=== PATIENT | female | born 1940 | race Caucasian/White ===

== ENCOUNTER → 2016-10-07 | Outpatient (CLI) | payer MEDICARE ==
[~2016-10-07] MED LIST: ALPR0.5T3 PO; AMIT1TAB79 PO; AMIT25TA9 PO; ARTHTAB5 PO; ASCO100016 PO; B COTAB6 PO; CALC600T25 PO; CLAR10CA3 PO; ESTR.3 PO; ESTR0.62 VAGINAL; HYDR200T3 PO; LEVO100T5 PO; LEVO88TA2 PO; METH4TAB6 PO; MULTCAP PO; NIFE30TA61 PO; OCUVTAB PO; OMEG100010 PO; ONE-TAB14 PO; OXYC1CAP PO; OXYC1TAB63 PO; PLAQ200T PO; PROM12.55 PO; REST0.05 EACH EYE; SULF1TAB23 PO; SUPECAP2 PO; VITA10007 PO; VITA20003 PO
[2016-10-07 14:54] LABS: AUTOMATED NEUTROPHIL # 2.3 TH/MM3 (1.8-7.7); BASOPHIL % 0.9 % (0.0-2.0); EOSINOPHIL # 0.1 TH/MM3 (0-0.4); EOSINOPHIL % 2.2 % (0.0-4.0); HEMATOCRIT 37.4 % (35.0-46.0); HEMO FLAGS DIFF FINAL; LYMPH % 28.3 % (9.0-44.0); LYMPHOCYTE # 1.1 TH/MM3 (1.0-4.8); MEAN CORPUSCULAR HEMOGLOBIN 32.5 PG (27.0-34.0); MEAN CORPUSCULAR HGB CONC 34.9 % (32.0-36.0); MONO % 9.7 % (0.0-8.0); NEUT % 58.9 % (16.0-70.0); PLATELET COUNT 296 TH/MM3 (150-450); RED BLOOD COUNT 4.02 MIL/MM3 (4.00-5.30); RED CELL DISTRIBUTION WIDTH 13.3 % (11.6-17.2); WHITE BLOOD COUNT 3.9 TH/MM3 (4.0-11.0)
[2016-10-07 15:02] LABS: BACTERIA, URINE RARE /hpf; BLOOD, URINE NEG (NEG); COMMENT (UR) CULT NOT INDICATED; CULTURE IF INDICATED CULT NOT INDICATED; GLUCOSE,URINE NEG (NEG); KETONE, URINE NEG (NEG); NITRITE,URINE NEG (NEG); SQUAMOUS EPITHELIAL CELL URINE 1 /hpf (0-5); URINE COLOR YELLOW (YELLW/STRAW)
[2016-10-07 15:16] LABS: ALT (GPT) 22 U/L (10-53); ANION GAP 7 MEQ/L (5-15); AST (GOT) 20 U/L (15-37); BICARBONATE 31.1 MEQ/L (21.0-32.0); BLOOD UREA NITROGEN 18 MG/DL (7-18); CHLORIDE 102 MEQ/L (98-107); GLOMERULAR FILTRATION RATE 70 ML/MIN (>89); GLUCOSE,FASTING 68 MG/DL (74-99); POTASSIUM 3.7 MEQ/L (3.5-5.1); SODIUM (NA) 140 MEQ/L (136-145)
[2016-10-07 15:18] LABS: ALKALINE PHOSPHATASE 85 U/L (45-117); TOTAL BILIRUBIN ADULT 0.4 MG/DL (0.2-1.0)
--- NOTE | 2016-10-07 22:32 | EKG ---
Date Performed: 10/07/2016 Time Performed: 14:15:17 PTAGE: 76 years EKG: Sinus rhythm ANTEROSEPTAL Q WAVES ABNORMAL ECG Compared to prior tracing no significant change DOCTOR: Margie Babcock Interpretating Date/Time 10/07/2016 22:30:38
== END ==
LOC: CPRE 13:48
PROVIDERS: ATTEND Obstetrics & Gynecology Gynecology
DX: Z01.810 Encounter for preprocedural cardiovascular examination (principal); Z01.812 Encounter for preprocedural laboratory examination; N99.3 Prolapse of vaginal vault after hysterectomy
CPT/HCPCS: 36415; 80053; 81001; 85025; 93005

== ENCOUNTER → 2016-10-15 | Day surgery (SDC) | payer MEDICARE ==
--- NOTE | 2016-10-07 14:47 | MH ---
cc: ERICA JUNE MD DATE OF ADMISSION: 10/15/2016 DATE OF : 1940 REASON FOR ADMISSION Vaginal suspension, anterior and posterior repair. HISTORY OF PRESENT ILLNESS The patient is a 76-year-old white female, 1, para 1, status post prior hysterectomy, who has had issues with pelvic organ prolapse. This is manifested mainly by a sensation of pressure and bulging from the vagina. This is 6-7 on a scale of 10, worse with standing, better when she is off her feet. She has used vaginal estrogen with no significant result and she wants to proceed now with surgical correction. HISTORY OF PRESENT ILLNESS 1. Lupus. 2. Hypertension. 3. Macular degeneration. 4. Hypothyroidism. 5. Osteoarthritis. 6. Migraines. PAST SURGICAL HISTORY 1. Hysterectomy. 2. Carpal tunnel release. 3. Cholecystectomy. 4. Tonsillectomy. ALLERGIES CODEINE. MEDICATIONS 1. Oxycodone/acetaminophen q.4h. p.r.n. 2. Amitriptyline 25 mg q.h.s. 3. Premarin 0.3 mg q. day. 4. Alprazolam 0.5 mg q. day. 5. Nifedipine 30 mg q. day. 6. Hydroxychloroquine 200 mg q. day. 7. Synthroid 100 mcg q. day. FAMILY HISTORY Noncontributory. SOCIAL HISTORY Distant [id number] smoking history, has not smoked for 30 years. HISTORY with good social support. SPANISH LINGUIST HISTORY No STDs or abnormal Pap smears. Hysterectomy for a benign condition. Endometriosis. OB HISTORY One vaginal delivery, baby was 9 pounds. REVIEW OF SYSTEMS As above. No chest pain, orthopnea, PND. No nausea, vomiting or chills. No vaginal bleeding or discharge. The remainder of a 14-point review is negative. PHYSICAL EXAMINATION VITAL SIGNS: She is afebrile. Vital signs stable. Blood pressure 150/90. Height 5.6, weight 143, BMI 22.7. GENERAL: Patient is alert and oriented in no acute distress. No sign of cognitive dysfunction or depression. HEENT: Within normal limits. NECK: Supple. No JVD. CHEST: Clear. HEART: Regular rate and rhythm. ABDOMEN: Soft, nontender. No hepatosplenomegaly. No CVA tenderness. PELVIC: Exam in the office shows Aa is -1; Ap is -1; point C is -1; genital hiatus is 4; perineal body is 4; total vaginal length is 10. No significant postvoid residual. No significant hypermobility of urethra. Further exam under anesthesia. EXTREMITIES: Normal. SKIN: Without rashes. NEUROLOGIC: Nonfocal. No DVT signs. ASSESSMENT/PLAN Patient with stage II pelvic organ prolapse, anterior, posterior and apical components. The patient and I have discussed at length options for management and treatment. She is aware of the risks, benefits and alternative of planned procedure including damage to surrounding organs, bleeding, infection, failure rate of at least 15%, possibility of prolonged catheterization as well as new onset urinary incontinence. Issues regarding postoperative pain in terms of bladder, bowel and sexual function were discussed. The patient at this point has made an informed choice to proceed. She is going to use antibiotic prophylaxis with Ancef one gram, DVT prophylaxis with sequential compression device. Anticipate outpatient procedure. Erica June MD CS/BT /2:21 PM /2:30 PM
[~2016-10-15] VITALS: Ht 168.9 cm; Wt 68.5 kg
[~2016-10-15] MED LIST changes: +ACETAMINOPHEN 1000 MG/100 ML VIAL IV ONE; +CHLORHEXIDINE GLUCONATE 2 % 1 PACK (2 CLOTHS) TOPICAL PRN; -CLAR10CA3 PO; +DO NOT ADM ANY ANTICOAGULANT DRUGS PRN; -ESTR.3 PO; +ESTROGENS CONJUGATED VAG CREA 15 APPL/30 GM TUBE ONE; +FAMOTIDINE 20 MG/2 ML VIAL ONE; +FLUORESCEIN SOD 10% SOLN 500 MG/5 ML AMP ONE; +INSULIN HUMAN REGULAR 1,000 UNITS/10 ML VIAL SQ PRN; +KETOROLAC TROMETHAMINE 10 MG TAB PO PRN; +KETOROLAC TROMETHAMINE 30 MG/ML (IVP) VIAL IV PUSH PRN; +KETOROLAC TROMETHAMINE 60 MG/2 ML (IM) VIAL IM ONE; +KETOROLAC TROMETHAMINE 60 MG/2 ML (IM) VIAL IM PRN; +LACTATED RINGER'S 1000 ML INJ 1,000 ML IV ONE; +LACTATED RINGER'S 1000 ML IV PRN; +LIDOCAINE 1%/EPINEPHrine 1:100,000 SOLN 20 ML VIAL ONE; +METHYLENE BLUE 100 MG/10 ML VIAL OTHER ONE; +METOPROLOL TARTRATE 25 MG TAB PO PRN; +MIDAZOLAM HCL 2 MG/2 ML VIAL ONE; +MORPHINE SULFATE 4 MG/ML INJ ONE; +ONDANSETRON HCL 4 MG/2 ML VIAL IV PUSH PRN; +ONDANSETRON HCL 4 MG/2 ML VIAL ONE; -OXYC1TAB63 PO; +PHENYLEPH/NS 1000 MCG/10 ML SYR IV ONE; -PLAQ200T PO; +POVIDONE IODINE 5% (ANTISEPSIS KIT) 4 APPLICATIONS EACH NARE PRN; +PROPOFOL 200 MG/20 ML AMP IV ONE; +SODIUM CHLORID 0.9% 500 ML IV PRN; -SULF1TAB23 PO; +ceFAZolin 1,000 MG/NS 100 ML IV SCH; +fentaNYL CITRATE 250 MCG/5 ML AMP ONE; +methylPREDNISolone SOD SUCC 125 MG/2 ML VIAL ONE
[2016-10-15 06:47] VITALS: BP 112/66; PULSE 68; RESP 16; TEMP 98.7; O2SAT 98
[2016-10-15 11:20] VITALS: BP 100/52; PULSE 66; RESP 16; TEMP 97.6; O2SAT 99
--- NOTE | 2016-10-17 09:57 | MP ---
cc: ERICA JUNE MD DATE OF SURGERY 10/15/2016 PREOPERATIVE DIAGNOSIS Vaginal vault prolapse following prior hysterectomy, Stage II. POSTOPERATIVE DIAGNOSES Vaginal vault prolapse following prior hysterectomy, Stage II. Cystocele Stage II. Rectocele Stage II. Enterocele. PROCEDURE 1. Sacrospinous ligament suspension of vagina extraperitoneal. 2. Anterior and posterior repair with enterocele repair. 3. Diagnostic cystoscopy. SURGEON MD David ANESTHESIA General endotracheal. FLUID 1200 cc crystalloid. BLOOD LOSS 20 cc CEREAL MILLER [place] staff x 2. FINDINGS External genitalia normal. POP-Q score: Aa is 0, Ap is 0. Point C is 0. Total vaginal length is 10. Genital hiatus is 5. Perineal body is 5. Following repair, Aa is -3, Ap is -3. Point C is -8. Total vaginal length is 9. Genital hiatus is 5. Perineal body is 5. The cystoscopy shows normal trigone, good coaptation of urethra. Ureteral orifices patent x 2. Dome and base of bladder are normal. Rectal exam following repair shows no compromise of the rectal lumen. Suture is palpable on the right side. SPECIMENS None. COMPLICATIONS None. DISPOSITION To Recovery stable. COUNTS Needle, instrument and sponge counts correct. DRAINS Child catheter. ANTIBIOTIC PROPHYLAXIS Ancef 1 gram. DVT PROPHYLAXIS Sequential compression device. TIME-OUT PROCEDURE Per protocol. SUMMARY OF PROCEDURE AND INDICATION The patient with symptomatic vaginal vault prolapse. PROCEDURE The patient was taken to the operating theatre, identified, prepped and draped in a fashion appropriate for the planned procedure. She was in dorsal lithotomy position with careful attention paid to placement of legs in the stirrups to avoid undue stress to sensitive neurovascular structures. The above findings were noted, neurovascular integrity documented. A Child catheter was placed, methylene blue was instilled into the bladder. The posterior compartment and apical defect were addressed first. Epinephrine/lidocaine were infiltrated in the vaginal mucosa. We made a midline incision with sharp scissors, took this up to the apex. The site of the dimpling on the right side was identified with a stay suture. There was no damage to the rectum with dissection. There was an enterocele that we encountered and pursestring with delayed absorbable suture without complication. The perirectal space on the right was entered and a sacrospinous ligament was identified visually and grasped with an Allis clamp and elevated. The Prolene suture was placed approximately two fingerbreadths from the ischial spine in a medial orientation. The suture was affixed to the vaginal mucosa at the level of the stay suture. Posterior repair was performed in standard fashion with delayed absorbable suture without complication. The vaginal cuff was trimmed. The vaginal cuff was then closed with a running Vicryl suture. Approximately one half of the mucosa was closed and we cinched down the support suture of Prolene with good elevation of the vaginal apex with minimal deviation. The remainder of the repair was performed and hemostasis was good. The anterior compartment still have some degree of prolapse. This area was infiltrated with epinephrine and lidocaine solution and dissection performed. There was no spilled methylene blue. Anterior repair was performed with delayed absorbable suture in standard fashion. The mucosa required minimal trimming and the mucosa was closed with a series of mattress sutures. The patient received IV fluorescein dye 1 cc. A 17-Georgian bridge and a 70-degree scope were used to inspect the bladder and urethra. Ureteral patency was documented by of green urine from each ureteral orifice. The procedure was concluded. The patient tolerated the procedure well and went to the recovery room in stable condition. MD MARIBEL Stephen/JANE /9:32 AM /9:40 AM
== END | disposition home or self-care (01) ==
LOC: HSDC 05:38
PROVIDERS: ATTEND Obstetrics & Gynecology Gynecology
DX: N99.3 Prolapse of vaginal vault after hysterectomy (principal); I10 Essential (primary) hypertension; E03.9 Hypothyroidism, unspecified; M32.9 Systemic lupus erythematosus, unspecified; H35.30 Unspecified macular degeneration; M19.90 Unspecified osteoarthritis, unspecified site; Z87.891 Personal history of nicotine dependence; Z90.710 Acquired absence of both cervix and uterus
CPT/HCPCS: 00840; 57265; 57282; J0131; J0690; J1885; J2250; J2270; J2370; J2405; J2930; J3010; J7120